=== PATIENT | female | born 1995 | race Caucasian/White ===

== ENCOUNTER 2018-04-08 13:27 | Outpatient (REF) | payer BC, SELFPAY ==
[2018-04-08 16:40] LABS: TSH 6.66 uIU/mL (0.358-3.74)
== END 2018-04-08 13:47 ==
LOC: NCHCN 13:27
PROVIDERS: PCP Family Medicine; Visit Provider Nurse Practitioner Family
DX: E03.9 Hypothyroidism, unspecified (principal)
CPT/HCPCS: 84443

== ENCOUNTER 2018-05-26 09:46 | Outpatient (REF) | payer BC, SELFPAY ==
--- NOTE | 2018-05-26 09:12 | SKI_PTH ---
PATIENT: Laura Johnson LOC: [facility] U#:[id number] AGE/SX: 23/F ROOM: RE05/26/[address]: ZAHRAA Erickson : 1995 BED: DIS: 05/26/2018 SPEC #: [id number] RECD: 05/26/18 18:17 STATUS: HARLAN REAlfredo #: [id number] SINTIA: 05/26/18 09:[address]: Jose Ahuja DEPT: Surgical Specimen RECD BY: Lorenza Garcia ENTERED: 05/26/18 18:18 SP TYPE: MAGDIEL DILLON DR: Heather Bustamante John Tissues: 1 - SKIN BIOPSY(SHAVE/PUNCH) 2 - SKIN BIOPSY(SHAVE/PUNCH) Procedures: SKIN LEVEL 4 Comments: [id number]
== END 2018-05-26 10:06 ==
LOC: LBN 09:46
PROVIDERS: PCP Family Medicine; Referring Provider Nurse Practitioner Family; Visit Provider Physician Assistant
DX: D22.62 Melanocytic nevi of left upper limb, including shoulder (principal)
CPT/HCPCS: 88305

== ENCOUNTER 2018-09-02 10:55 | Outpatient (REF) | payer BC, SELFPAY ==
--- NOTE | 2018-09-02 09:45 | PAPFT_PTH ---
PATIENT: Laura Johnson LOC: [facility] U#:[id number] AGE/SX: 23/F ROOM: RE09/02/[address]: AMPARO Chang : 1995 BED: DIS: 09/02/2018 SPEC #: [id number] RECD: 09/02/18 13:01 STATUS: HEENAPradip MORLEY #: [id number] SINTIA: 09/02/18 09:[address]: Nichole Veronica DEPT: [facility] Cytology RECD BY: Lorenza Garcia ENTERED: 09/02/18 13:01 SP TYPE: PAPFT OTHR DR: Nilay Chaudhari Tissues: 1 - CX/ENDOCX FOR PAP SMEARS Procedures: PAP THIN PREP/[facility] Screening Comments: [id number]
== END 2018-09-02 11:15 ==
LOC: LBN 10:55
PROVIDERS: PCP Family Medicine; Visit Provider Nurse Practitioner Family
DX: Z12.4 Encounter for screening for malignant neoplasm of cervix (principal)
CPT/HCPCS: 88142

== ENCOUNTER 2019-01-14 09:14 | Outpatient (REF) | payer BC, SELFPAY ==
[2019-01-14 13:40] LABS: TSH 11.23 uIU/mL (0.358-3.74)
== END 2019-01-14 09:34 ==
LOC: NCHCN 09:14
PROVIDERS: PCP Family Medicine; Visit Provider Nurse Practitioner Family
DX: E03.9 Hypothyroidism, unspecified (principal)
CPT/HCPCS: 84443

== ENCOUNTER 2019-03-10 10:36 | Outpatient (REF) | payer BC, SELFPAY ==
[2019-03-10 13:55] LABS: FREE T4 1.19 ng/dL (0.76-1.46)
== END 2019-03-10 10:56 ==
LOC: NCHCN 10:36
PROVIDERS: PCP Family Medicine; Visit Provider Nurse Practitioner Family
DX: E03.9 Hypothyroidism, unspecified (principal)
CPT/HCPCS: 84439; 84443

== ENCOUNTER 2019-07-28 12:51 | Outpatient (REF) | payer BC, SELFPAY ==
[2019-07-29 13:10] LABS: Chlamydia Result Negative (Negative); GC Result Negative (Negative)
== END 2019-07-28 13:11 ==
LOC: LBN 12:51
PROVIDERS: PCP Family Medicine; Visit Provider Nurse Practitioner Family
DX: Z11.3 Encounter for screening for infections with a predominantly sexual mode of transmission (principal)
CPT/HCPCS: 87491; 87591

== ENCOUNTER 2019-09-08 12:55 | Outpatient (REF) | payer BC, SELFPAY ==
--- NOTE | 2019-09-08 11:30 | PAPFT_PTH ---
PATIENT: Laura Johnson LOC: [facility] U#:[id number] AGE/SX: 24/F ROOM: RE09/08/[address]: AMPARO Chang : 1995 BED: DIS: 09/08/2019 SPEC #: [id number] RECD: 09/08/19 17:38 STATUS: HARLAN REAlfredo #: [id number] SINTIA: 09/08/19 11:[address]: Nichole Veronica DEPT: [facility] Cytology RECD BY: Lorenza Garcia ENTERED: 09/08/19 17:38 SP TYPE: PAPFT OTHR DR: Nilay Chaudhari Tissues: 1 - CX/ENDOCX FOR PAP SMEARS Procedures: PAP THIN PREP/UVM Screening Comments: [id number]
== END 2019-09-08 13:15 ==
LOC: LBN 12:55
PROVIDERS: PCP Family Medicine; Visit Provider Nurse Practitioner Family
DX: Z12.4 Encounter for screening for malignant neoplasm of cervix (principal)
CPT/HCPCS: 88142; 87624

== ENCOUNTER 2020-03-02 20:47 | Outpatient (REF) | payer BC, SELFPAY ==
[2020-03-02 20:15] LABS: TSH (W/Ref FT4) 1.04 uIU/mL (0.36-3.74)
== END 2020-03-02 21:07 ==
LOC: LBN 20:47
PROVIDERS: PCP Family Medicine; Visit Provider Nurse Practitioner Family
DX: Z00.00 Encounter for general adult medical examination without abnormal findings (principal); F41.8 Other specified anxiety disorders; E03.9 Hypothyroidism, unspecified; K58.9 Irritable bowel syndrome, unspecified
CPT/HCPCS: 84443

== ENCOUNTER 2020-06-16 08:04 | Emergency (ER) | payer BC, SELFPAY ==
[2020-06-16 08:09] VITALS: BP 137/89; PULSE 102; RESP 16; TEMP 36.6; O2SAT 99
--- NOTE | 2020-06-16 08:17 | ED.GENADUL_ITS ---
Discharge Plan Disposition Patient Disposition: HOME Condition: Stable Discharge Details Clinical Impression: Gastroenteritis Primary Care Provider: Nilay Chaudhari ED Provider: Mariluz Lou Home Meds and New Rx's Prescriptions: New ondansetron 4 mg tablet,disintegrating 4 mg PO Q8H PRN (Reason: nausea and vomiting) 5 Days Qty: 14 RF: 0 Continued levothyroxine 88 mcg capsule 100 mcg PO DAILY RF: 0 calcium carbonate [Calcium 500] 500 mg calcium (1,250 mg) tablet 500 mg PO DAILY RF: 0 magnesium oxide 400 mg magnesium capsule 400 mg PO DAILY RF: 0 ascorbic acid (vitamin C) 1,000 mg tablet extended release 1,000 mg PO Q12H RF: 0 cholecalciferol (vitamin D3) 10 mcg (400 unit) tablet 400 unit PO DAILY RF: 0 zinc 50 mg tablet 50 mg PO DAILY RF: 0 nicotine 14 mg/24 hr patch 24 hour RF: 0 Discharge Instructions Instructions: Gastroenteritis (ED) Additional Instructions: Follow up with primary care provider in 3-5 days. Return to ED sooner if any worsening or concerns. Increase oral fluids. Take medications as prescribed please take Tylenol or Ibuprofen with food every 4-6 hours as needed for pain and swelling. Stand Alone Forms: PENDING COVID-19 TESTING Referrals: Nilay Chaudhari [Primary Care Provider] - Discharge Data Discharge Date/Time-TO BE ENTERED AT DEPARTURE: 06/16/20 10:55 Medical Decision Making 25-year-old female presents to the ER with chief complaint of abdominal pain associated with nausea vomiting diarrhea. This began 2 days ago. She denies any sick contacts, no fever, positive chills no dysuria or problems urinating. She does have a past medical history of irritable bowel syndrome, bipolar, hypothyroidism, GERD. She describes the pain as sharp, intermittent and waxing and waning. Differential diagnosis includes cholecystitis, GERD,. Pancreatitis, gastroenteritis. xam(s) a CT:CT abdomen & pelvis w EXAM: CT ABDOMEN PELVIS W CLINICAL HISTORY: RUQ and LUQ abd pain, N/V/D TECHNIQUE: Imaging Protocol: Axial computed tomography images with coronal and sagittal reformatted images were created and reviewed CONTRAST MATERIAL: Intravenous: Omnipaque 350 Contrast volume:100 mL Oral: No COMPARISON: CT ABD PELVIS WITH CONTRAST from 07/30/2015 FINDINGS: ABDOMEN: Lung Bases: Normal where visualized. Liver: Normal density. No measurable mass. Portal, Superior Mesenteric, and Splenic Veins: Unremarkable. Gallbladder and Biliary Tract: No radiodense calculus or dilation. Pancreas: Normal density, no abnormal calcifications or inflammatory process. Spleen: Normal. Adrenals: No masses seen. Kidneys: Normal size, contour and axis. No radiodense stones or obstructive uropathy. No masses seen. Abdominal Aorta: Abdominal portion non-dilated. Bowel: No obstruction or bowel wall thickening. Appendix is unremarkable. Peritoneal Cavity: No ascites, collection or mesenteric inflammatory response. Lymph Nodes: Within normal limits. Bones: Unremarkable. Soft Tissues: Unremarkable. PELVIS: Bladder: Symmetric distention, no gross wall thickening. Reproductive Organs: Unremarkable as visualized. Lymph Nodes: Within normal limits. Bones: Within normal limits. IMPRESSION: No acute abdominal or pelvic process. Findings were discussed with the emergency department on the date of the examination. CBC shows white blood cell count of 15.50, RBCs 5.44, absolute neutrophils 10.54, CMP shows sodium 136, potassium 4.2, anion gap 10.7, BUN 8, creatinine 0.73, glucose 113 urinalysis shows small blood 5-10 RBCs negative for leukocytes or nitrites. Urine culture is not indicated at this time due to squamous contamination. Patient requested a Covid test to return back to work, Covid test ordered and is pending at this time. Discussed strict return instructions, verbalized understanding. Patient was given Zofran prescription and instructed to follow-up with PCP. This text was generated using [employer] dictation system, please disregard any oddities of phrase or misspellings. HPI General Mode of arrival: ambulatory . Date/Time Provider Initiated Documentation: 06/16/20 08:12 . Limitations to Documentation: no limitations . Information obtained by: patient . HPI Narrative: 25-year-old female presents to the ER with chief complaint of abdominal pain associated with nausea vomiting diarrhea. This began 2 days ago. She denies any sick contacts, no fever, positive chills no dysuria or problems urinating. She does have a past medical history of irritable bowel syndrome, bipolar, hypothyroidism, GERD. She describes the pain as sharp, intermittent and waxing and waning. Related Data Home Medications Medication Instructions Recorded Confirmed levothyroxine 88 mcg capsule 100 mcg PO DAILY 09/02/18 06/16/20 ascorbic acid (vitamin C) 1,000 mg 1,000 mg PO Q12H 07/28/19 06/16/20 tablet,extended release calcium carbonate 500 mg calcium 500 mg PO DAILY 07/28/19 06/16/20 (1,250 mg) tablet cholecalciferol (vitamin D3) 10 400 unit PO DAILY 07/28/19 06/16/20 mcg (400 unit) tablet magnesium oxide 400 mg PO DAILY 07/28/19 06/16/20 zinc 50 mg tablet 50 mg PO DAILY 07/28/19 06/16/20 nicotine 06/16/20 ondansetron 4 mg PO Q8H PRN 5 Days #14 tab 06/16/20 Previous Rx's Medication Instructions Recorded ondansetron 4 mg PO Q8H PRN 5 Days #14 tab 06/16/20 Allergies Allergy/AdvReac Type Severity Reaction Status Date / Time codeine AdvReac VIOLENTLY Verified 06/16/20 08:16 VOMITTING WITH FEVER General Stated Complaint: Abd Prob SIDNEY: 3 Review of Systems Narrative: Constitutional: Negative for weight loss, alert and oriented, well groomed, obese body habitus, appears comfortable. HEENT: Denies trauma, headaches, blurry vision, nasal discharge, sore throat, trouble swallowing. Chest: Denies chest pain, palpitations, irregular rhythm, hypertension. Respiratory: Denies Shortness of breath, cough, hemoptysis. GI: Denies constipation. Positive abdominal pain nausea vomiting diarrhea. : Denies dysuria, hematuria, flank pain, rectal bleeding. Neuro: Denies dizziness, blurry vision, weakness, syncope, headache or facial numbness. Hematologic: Denies easy bruising, intolerance to heat or cold, hair loss. PFSH Medical History Attention deficit hyperactivity disorder Bipolar disorder GERD (gastroesophageal reflux disease) Hypothyroidism IBS Tobacco dependence, continuous Surgical History WISDOM TEETH REMOVAL (02/03/13) X4 Family History Mother No problems noted. Father Essential hypertension Hyperlipidemia Social History Smoking/Tobacco Use Status: Current every day Quit status: not considering quitting Smoking risk assessment performed?: Yes Alcohol Intake: never Drug use: Occasionally Substance use type: does not use Female Reproductive History Menstrual control method: condoms History History 0 Para Hx # Term Pregnancies Multiple births Hx # Pregnancies Ectopic pregnancies AB induced Hx Number of Living Children AB spontaneous Exam Narrative Exam Narrative: Constitutional: Alert and oriented x3. Appears stated age. Normal body habitus. Head: Normocephalic, no trauma. Eyes: Pupils PERRLA, Red reflex noted, EOM's intact. Eyelids symmetrical without lesions, discharge, or swelling. ENT: Bilateral TM's WNL, External ear normal to inspection, no mastoid TTP, swelling, or erythema, Nasal turbinates WNL, no nasal discharge. Normal dentition, Posterior pharynx WNL, no exudate. Chest: RRR, Normal S1, S2, distal pulses intact. Resp: Lungs clear to auscultation bilaterally, no wheezes, rales, or rhonchi. Abdominal: Soft, tender to the right upper quadrant and left upper quadrant with palpation. Normoactive bowel sounds all 4 quadrants. Musculoskeletal: Normal gait, 5/5 strength to all four extremities. Skin: No suspicious rashes or lesions. Capillary refill less than 2 sec. Neurologic: Cranial nerves II-XII intact. Alert and oriented x 3. DTR's intact. Hematologic/Lymphatic: No ecchymosis, no lymphadenopathy. Course Vital Signs Vital signs: Vital Signs Temperature 36.6 C 06/16/20 08:09 Pulse 102 H 06/16/20 08:09 Respiratory Rate 16 06/16/20 08:09 Blood Pressure 137/89 06/16/20 08:09 Pulse Oximetry 99 06/16/20 08:09 Temperature 36.6 C 06/16/20 08:09 Temperature Source Temporal Artery Scan 06/16/20 08:09 Pulse 102 H 06/16/20 08:09 Respiratory Rate 16 06/16/20 08:09 Respiratory Effort Non-Labored 06/16/20 08:09 Blood Pressure 137/89 06/16/20 08:09 Blood Pressure Position Sitting 06/16/20 08:09 Pulse Oximetry 99 06/16/20 08:09 Pain Level 7 06/16/20 08:09
[2020-06-16 08:24] LABS: Bilirubin Negative (Negative); Blood Small (Negative); Clarity Clear (Clear); Glucose Negative (Negative); Ketones Negative (Negative); Leukocyte Esterase Negative (Negative); Nitrite Negative (Negative); Urobilinogen 0.2 EU/dL (Up TO 0.2); pH 5.5 (5-8)
[2020-06-16] MEDS: Ondansetron 4 MG/2 ML VIAL IVP ×2 (08:28→09:42)
[2020-06-16] MEDS: Normal Saline 1,000 ML 1000 ML IV (08:28)
[2020-06-16 08:35] LABS: Abs Immature Grans 0.06 10^3/uL (0.0-0.06); Absolute Basophil Count 0.06 10^3/uL (0.0-0.2); Absolute Lymphocyte Count 4.03 10^3/uL (1.2-3.4); Absolute Monocyte Count 0.65 10^3/uL (0.1-0.8); Basophils % 0.4; HCT 44.9 % (36.0-46.0); Immature Grans % 0.4; MCH 27.6 pg (27.0-33.0); MCHC 33.4 % (32.0-36.0); MCV 82.5 fL (80-95); MPV 9.9 fL (8.0-11.0); Monocytes % 4.2; Nucleated RBC 0 %; Platelet Count 335 10^3/uL (130-400); RBC 5.44 10^6/uL (3.93-5.22); RDW 13.1 % (11.7-14.6); RDW-SD 39.2 fL
[2020-06-16 08:35] LABS: Bacteria Moderate HPF (Negative); Crystals Negative HPF (Negative); Epithelial Cells Moderate HPF (Negative); Mucus Negative (Negative); Other Cells Negative (Negative); WBC Negative HPF (0-5)
[2020-06-16 08:36] LABS: C & S Indicated? No/Sq. Contamination; Casts Negative LPF (Negative)
[2020-06-16 08:36] LABS: Absolute Eosinophil Count 0.16 10^3/uL (0.0-0.7); Absolute Neutrophil Count 10.54 10^3/uL (1.2-6.7)
[2020-06-16 08:48] LABS: ALT 23 U/L (14-59); AST 12 U/L (15-37); Albumin 3.9 g/dL (3.4-5.0); Alkaline Phosphatase 107 U/L (46-116); Anion Gap 10.7 mmol/L (3-11); BUN 8 mg/dL (7-18); Bilirubin, Total 0.3 mg/dL (0.2-1.0); CO2 21.3 mmol/L (21.0-32.0); CREATININE 0.73 mg/dL (0.55-1.02); Calcium 8.9 mg/dL (8.5-10.1); Chloride 104 mmol/L (98-107); Glucose 113 mg/dL (74-106); Lipase 115 U/L (73-393); Magnesium 1.9 mg/dL (1.8-2.4); Potassium 4.2 mmol/L (3.5-5.1); Sodium 136 mmol/L (136-145)
[2020-06-16 09:33] VITALS: BP 127/83; PULSE 67; RESP 17; TEMP 36.6; O2SAT 100
--- NOTE | 2020-06-16 10:20 | DI.CT_ITS ---
EXAM: CT ABDOMEN PELVIS W CLINICAL HISTORY: RUQ and LUQ abd pain, N/V/D TECHNIQUE: Imaging Protocol: Axial computed tomography images with coronal and sagittal reformatted images were created and reviewed CONTRAST MATERIAL: Intravenous: Omnipaque 350 Contrast volume:100 mL Oral: No COMPARISON: CT ABD PELVIS WITH CONTRAST from 07/30/2015 FINDINGS: ABDOMEN: Lung Bases: Normal where visualized. Liver: Normal density. No measurable mass. Portal, Superior Mesenteric, and Splenic Veins: Unremarkable. Gallbladder and Biliary Tract: No radiodense calculus or dilation. Pancreas: Normal density, no abnormal calcifications or inflammatory process. Spleen: Normal. Adrenals: No masses seen. Kidneys: Normal size, contour and axis. No radiodense stones or obstructive uropathy. No masses seen. Abdominal Aorta: Abdominal portion non-dilated. Bowel: No obstruction or bowel wall thickening. Appendix is unremarkable. Peritoneal Cavity: No ascites, collection or mesenteric inflammatory response. Lymph Nodes: Within normal limits. Bones: Unremarkable. Soft Tissues: Unremarkable. PELVIS: Bladder: Symmetric distention, no gross wall thickening. Reproductive Organs: Unremarkable as visualized. Lymph Nodes: Within normal limits. Bones: Within normal limits. IMPRESSION: No acute abdominal or pelvic process. Findings were discussed with the emergency department on the date of the examination. RADIATION DOSE DELIVERED: 1,186.65mGy.cm Total DLP DATA REPOSITORY: All CT scans at this facility are submitted to the National Radiology Data Registry (NRDR) Dose Index Registry (DIR) with the [employer] ([employer]). RADIATION OPTIMIZATION: All CT scans at this facility use at least one of these dose optimization te chniques: automated exposure control; mA and/or kV adjustment per patient size (includes targeted exa ms where dose is matched to clinical indication); or iterative reconstruction.
[2020-06-16] MEDS: Normal Saline - Diluent 50 ML VIAL IV (10:42)
[2020-06-16] MEDS: Omnipaque 350 MG/ML 100 ML BTL IJ (10:43)
[2020-06-19 15:42] LABS: Patient Race White; SARS-CoV-2 RNA Undetected (Undetected); SARS-CoV-2 Specimen Source Nasopharynx
--- NOTE | 2020-06-20 12:02 | NUR.NOTE ---
Nursing Note: Pt given negative COVID result over the phone at 1201 on today's date and has requested it be sent to employer ([employer]), sent to Quynh Garsia @ [phone]. Verbal consent obtained for faxing this result by this nurse at 1201.
== END 2020-06-16 10:55 | disposition home or self-care (01) ==
PROVIDERS: Emergency Provider Registered Nurse Emergency; PCP Family Medicine
DX: R10.10 Upper abdominal pain, unspecified (principal); R11.2 Nausea with vomiting, unspecified; K52.9 Noninfective gastroenteritis and colitis, unspecified; K58.9 Irritable bowel syndrome, unspecified; Z11.59 Encounter for screening for other viral diseases
CPT/HCPCS: 36415; 80053; 81025; 83690; 96361; 96374; 96375; 99285; U0003; 74177; 81003; 81015; 83735; 85025; 99284; J2405; J3490

== ENCOUNTER 2020-07-21 17:58 | Outpatient (REF) | payer BC, SELFPAY ==
[2020-07-24 16:06] LABS: COVID-19 RT-PCR UVMMC Result Negative (Negative)
== END 2020-07-21 18:18 ==
LOC: NCHCN 17:58
PROVIDERS: PCP Family Medicine; Visit Provider Nurse Practitioner Family
DX: R19.7 Diarrhea, unspecified (principal)
CPT/HCPCS: U0003

== ENCOUNTER 2020-09-27 13:25 | Outpatient (REF) | payer BC, SELFPAY ==
--- NOTE | 2020-09-27 11:20 | PAPFT_PTH ---
PATIENT: Laura Johnson LOC: [facility] U#:[id number] AGE/SX: 25/F ROOM: RE09/27/[address]: AMPARO Chang : 1995 BED: DIS: 09/27/2020 SPEC #: [id number] RECD: 09/27/20 17:58 STATUS: HARLAN REQ #: [id number] SINTIA: 09/27/20 11:[address]: Nichole Veronica DEPT: [facility] Cytology RECD BY: Lorenza Garcia ENTERED: 09/27/20 17:58 SP TYPE: PAPFT OTHR DR: Nilay Chaudhari Tissues: 1 - CX/ENDOCX FOR PAP SMEARS Procedures: PAP THIN PREP/[facility] Screening Comments: [id number]
== END 2020-09-27 13:26 | disposition home or self-care (01) ==
LOC: LBN 13:25
PROVIDERS: PCP Family Medicine; Visit Provider Nurse Practitioner Family
DX: Z12.4 Encounter for screening for malignant neoplasm of cervix (principal)
CPT/HCPCS: 88142

== ENCOUNTER 2020-12-20 15:36 | Outpatient (REF) | payer BC, SELFPAY ==
[2020-12-20 16:06] LABS: TSH (W/Ref FT4) 2.29 uIU/mL (0.36-3.74)
[2020-12-20 18:41] LABS: HCG Qual (Serum) Negative
== END 2020-12-20 15:37 | disposition home or self-care (01) ==
LOC: NCHCN 15:36
PROVIDERS: PCP Family Medicine; Visit Provider Nurse Practitioner Family
DX: E03.9 Hypothyroidism, unspecified (principal); N91.2 Amenorrhea, unspecified
CPT/HCPCS: 84443; 84703

== ENCOUNTER 2021-02-24 16:00 | Outpatient (REF) | payer BC, SELFPAY ==
[2021-02-24 18:30] LABS: HCG Quant, Pregnancy 3968 mIU/mL (1-3)
== END 2021-02-24 16:01 | disposition home or self-care (01) ==
LOC: NCHCN 16:00
PROVIDERS: PCP Family Medicine; Visit Provider Physician Assistant Medical
DX: Z34.81 Encounter for supervision of other normal pregnancy, first trimester (principal)
CPT/HCPCS: 84702